=== PATIENT | male | born 1960 | race Caucasian/White ===

== ENCOUNTER 2021-07-14 02:46 | Emergency (ER) | payer MEDICAID ==
[~2021-07-14] VITALS: Ht 182.9 cm; Wt 104.3 kg
[2021-07-14 02:46] VITALS: BP_SYST 176
[2021-07-14] MEDS ORDERED: HYDROcodone/ACETAMIN 5-325 MG TAB (NORCO/ VICODIN) PO ONE (03:15)
[2021-07-14] MEDS ORDERED: LORazepam 1 MG TABLET PO ONE (03:15)
[2021-07-14] MEDS ORDERED: cephALEXin 500 MG CAPSULE PO ONE (03:15)
[2021-07-14] MEDS ORDERED: DIPH-TET-PERTUS Vaccine 0.5 ML VIAL (ADACEL) I.M. ONE (03:15)
[2021-07-14] MEDS ORDERED: LIDOCAINE 1% 10 MG/ML, 20 ML MDV INJ ONE (03:15)
[2021-07-14] MEDS ORDERED: cloNIDine HCL 0.1 MG TABLET ONE (05:42)
[2021-07-14] MEDS ORDERED: cloNIDine HCL 0.1 MG TABLET PO ONE (06:00)
[2021-07-14] MEDS ORDERED: IBUP800T54 PO (06:47)
[2021-07-14 06:52] VITALS: BP_SYST 167
== END 2021-07-14 09:07 | disposition home or self-care (01) ==
LOC: SED 02:46
DX: S01.81XA Laceration without foreign body of other part of head, initial encounter (principal); S09.90XA Unspecified injury of head, initial encounter; Z79.899 Other long term (current) drug therapy; W01.0XXA Fall on same level from slipping, tripping and stumbling without subsequent striking against object, initial encounter; Y93.89 Activity, other specified; Y92.89 Other specified places as the place of occurrence of the external cause; Y99.8 Other external cause status
CPT/HCPCS: 12015; 70450; 70486; 72125; 76376; 90471; 90715; 99285; J2001

== ENCOUNTER 2021-07-19 15:31 | Emergency (ER) | payer MEDICAID ==
[~2021-07-19] VITALS: Ht 182.9 cm; Wt 104.3 kg
[~2021-07-19 15:31] MED LIST: IBUP800T54 PO
[2021-07-19 15:49] VITALS: BP_SYST 151
[2021-07-19 17:04] VITALS: BP_SYST 147
== END 2021-07-19 17:04 | disposition home or self-care (01) ==
LOC: SED 15:31
DX: S01.81XD Laceration without foreign body of other part of head, subsequent encounter (principal); Z48.02 Encounter for removal of sutures; Z79.899 Other long term (current) drug therapy; X58.XXXD Exposure to other specified factors, subsequent encounter
CPT/HCPCS: 99281

== ENCOUNTER 2022-02-24 07:31 | Inpatient (IN) | payer MEDICAID ==
[~2022-02-24] VITALS: Ht 182.9 cm; Wt 99.8 kg
[2022-02-24 07:35] VITALS: BP_SYST 157
[2022-02-24] MEDS ORDERED: MORPHINE 4 MG INJ. 4 MG/ML VIAL IVP ONE (08:30)
[2022-02-24 08:56] LABS: ANION GAP 5 (5-15); CALCIUM 8.2 mg/dL (8.4-11.0); CHLORIDE 97 mmol/L (98-107); CREATININE 1.45 mg/dL (0.55-1.30); GLUCOSE 87 mg/dL (70-99); SODIUM SERUM 131 mmol/L (136-145); UREA NITROGEN, BLOOD 25 mg/dL (8-21)
[2022-02-24 08:57] LABS: INR 1.1 (0.80-1.20); PROTHROMBIN TIME 10.7 SECS (9.5-12.5)
[2022-02-24 09:02] LABS: BASOPHILS # (AUTO) 0.1 K/uL (0.0-0.2); BASOPHILS % (AUTO) 0.9 % (0.0-2.0); EOSINOPHILS # (AUTO) 0.3 K/uL (0.0-0.4); EOSINOPHILS % (AUTO) 3.6 % (0.0-4.0); HEMATOCRIT 44.9 % (36-54); HEMOGLOBIN 15.2 g/dL (14.0-18.0); LYMPHOCYTES # (AUTO) 0.2 K/uL (1.0-5.5); LYMPHOCYTES % (AUTO) 2.8 % (20.5-51.5); MEAN CORPUSCULAR HEMOGLOBIN 31 pg (27-31); MEAN CORPUSCULAR HGB CONC 34 % (32-36); MEAN CORPUSCULAR VOLUME 91 fL (79.0-98.0); MONOCYTES # (AUTO) 0.6 K/uL (0.0-1.0); NEUTROPHILS # (AUTO) 6.8 K/uL (1.8-7.7); NEUTROPHILS % (AUTO) 84.7 % (40.0-70.0); PLATELET COUNT (AUTO) 175 K/uL (130-430); RED BLOOD CELL COUNT(AUTO) 4.95 MIL/uL (4.2-6.2); RED CELL DISTRIBUTION WIDTH 16.6 % (9.0-15.0)
[2022-02-24 09:04] LABS: ALANINE AMINOTRANSFERASE 11 U/L (12-78); ASPARTATE AMINOTRANSFERASE 18 U/L (10-37); TOTAL BILIRUBIN 0.8 mg/dL (0.0-1.0)
[2022-02-24 09:13] LABS: BILIRUBIN,URINE NEGATIVE (NEGATIVE); BLOOD, URINE 1+ (NEGATIVE); CLARITY/URINE CLEAR (CLEAR); COLOR,URINE YELLOW (YELLOW); GLUCOSE,URINE NEGATIVE (NEGATIVE); KETONES,URINE NEGATIVE (NEGATIVE); LEUKOCYTE ESTERASE ,URINE NEGATIVE (NEGATIVE); NITRITE, URINE NEGATIVE (NEGATIVE); PROTEIN URINE 3+ (NEGATIVE); UROBILINOGEN,URINE 0.2 (0.2-1.0)
[2022-02-24 09:16] LABS: GFR AFRICAN AMERICAN 64 mL/min (>90)
[2022-02-24 09:31] LABS: BACTERIA,URINE RARE /HPF (None Seen); MUCUS,URINE 1+ /LPF (None Seen); WBC,URINE 0-3 /HPF (0-3)
[2022-02-24] MEDS ORDERED: iohexoL 350 mgI/mL, 100 ML INFUS..BTL IV ONE (09:42)
[2022-02-24] MEDS ORDERED: NITROGLYCERIN 1 INCH (GM) OINT. TP ONE (12:00)
[2022-02-24] MEDS ORDERED: FUROSEMIDE 100 MG/10 ML VIAL IVP ONE (12:00)
[2022-02-24] MEDS ORDERED: DEXTROSE 50% JECT 50 ML DISP.SYRIN IVP PRN (15:15)
[2022-02-24] MEDS ORDERED: INSULIN REGULAR, HUMAN 100 UNITS/ML, 10 ML VIAL (humuLIN R) SUBCUT PRN (15:15)
[2022-02-24] MEDS ORDERED: NALOXONE HCL 0.4 MG/ML AMP (NARCAN) IVP PRN (15:30)
[2022-02-24] MEDS ORDERED: MORPHINE 2 MG/ML INJ. SYRINGE IVP PRN (15:30)
[2022-02-24] MEDS ORDERED: DIPHENHYDRAMINE INJ 50 MG/ML VIAL IVP PRN (15:30)
[2022-02-24] MEDS ORDERED: LORazepam 2 MG/ML VIAL IVP PRN (15:30)
[2022-02-24] MEDS ORDERED: ACETAMINOPHEN 325 MG TABLET PO PRN (15:30)
[2022-02-24 15:34] LABS: BARBITURATE, URINE NEGATIVE (NEG <=200); BENZODIAZEPINE, URINE NEGATIVE (NEG <=150); CANNABINOID, URINE POSITIVE (NEG <=50); COCAINE, URINE NEGATIVE (NEG <=150); METHAMPHETAMINES SCREEN,URINE POSITIVE (NEG <=500); OPIATE, URINE NEGATIVE (NEG <=100); PHENCYCLIDINE SCREEN,URINE NEGATIVE (NEG <=25); UR TRICYCLIC ANTIDEPRESSANTS NEGATIVE (NEG <=300); URINE AMPHETAMINE POSITIVE (NEG <=500); URINE METHADONE NEGATIVE (NEG <=200); URINE OXYCODONE SCREEN NEGATIVE (NEG <=100); URINE PROPOXYPHENE SCREEN NEGATIVE (NEG <=300)
[2022-02-24] MEDS ORDERED: CARVEDILOL 6.25 MG TABLET (COREG) PO ONE (15:45)
[2022-02-24] MEDS ORDERED: PANTOPRAZOLE SODIUM 40 MG TAB PO ONE (16:00)
[2022-02-24 16:30] VITALS: BP_SYST 145
[2022-02-24] MEDS: MORPHINE 4 MG INJ. 4 MG/ML VIAL IVP PRN (16:35)
[2022-02-24 16:37] VITALS: BP_SYST 145
[2022-02-24] MEDS: FUROSEMIDE 20 MG TABLET PO SCH (17:36)
[2022-02-24 20:00] VITALS: BP_SYST 145
[2022-02-24] MEDS ORDERED: ACETAMINOPHEN 325 MG TABLET ONE (20:50)
[2022-02-24] MEDS: PANTOPRAZOLE SODIUM 40 MG TAB PO SCH (21:46)
[2022-02-24] MEDS: CARVEDILOL 6.25 MG TABLET (COREG) PO SCH (21:52)
[2022-02-25] VITALS: BP_SYST 135
[2022-02-25 01:20] VITALS: BP_SYST 120
[2022-02-25 03:18] LABS: BASOPHILS % (AUTO) 0.8 % (0.0-2.0); EOSINOPHILS # (AUTO) 0.1 K/uL (0.0-0.4); EOSINOPHILS % (AUTO) 1.1 % (0.0-4.0); HEMATOCRIT 44.6 % (36-54); HEMOGLOBIN 15.1 g/dL (14.0-18.0); LYMPHOCYTES # (AUTO) 0.3 K/uL (1.0-5.5); LYMPHOCYTES % (AUTO) 4.9 % (20.5-51.5); MEAN CORPUSCULAR HEMOGLOBIN 31 pg (27-31); MEAN CORPUSCULAR HGB CONC 34 % (32-36); MEAN CORPUSCULAR VOLUME 90 fL (79.0-98.0); MONOCYTES # (AUTO) 0.7 K/uL (0.0-1.0); MONOCYTES % (AUTO) 13.7 % (1.7-9.3); NEUTROPHILS # (AUTO) 4.3 K/uL (1.8-7.7); NEUTROPHILS % (AUTO) 79.5 % (40.0-70.0); PLATELET COUNT (AUTO) 153 K/uL (130-430); RED BLOOD CELL COUNT(AUTO) 4.95 MIL/uL (4.2-6.2); RED CELL DISTRIBUTION WIDTH 16.9 % (9.0-15.0); WHITE BLOOD COUNT (AUTO) 5.4 K/uL (4.8-10.8)
[2022-02-25 03:33] LABS: CREATININE 1.75 mg/dL (0.55-1.30)
[2022-02-25 03:39] LABS: ALBUMIN 2.8 g/dL (3.4-4.8); PHOSPHORUS 4.8 mg/dL (2.7-4.5); TOTAL BILIRUBIN 0.6 mg/dL (0.0-1.0)
[2022-02-25 04:00] VITALS: BP_SYST 117
[2022-02-25 08:49] VITALS: BP_SYST 128
[2022-02-25] MEDS: PANTOPRAZOLE SODIUM 40 MG TAB PO SCH ×2 (10:02→20:26)
[2022-02-25] MEDS: FUROSEMIDE 20 MG TABLET PO SCH ×2 (10:03→18:33)
[2022-02-25] MEDS: CARVEDILOL 6.25 MG TABLET (COREG) PO SCH ×2 (10:03→20:29)
[2022-02-25 11:19] VITALS: BP_SYST 151
[2022-02-25] MEDS: ONDANSETRON HCL 4 MG/2 ML VIAL IVP PRN (13:41)
[2022-02-25 16:32] VITALS: BP_SYST 152
[2022-02-26] VITALS (7 sets, daily range): BP systolic 93–156
[2022-02-26] MEDS: CARVEDILOL 6.25 MG TABLET (COREG) PO SCH ×2 (08:53→20:40)
[2022-02-26] MEDS: POLYETHYLENE GLYCOL 3350, 17 GM/ POWD.PACK PO SCH (08:53)
[2022-02-26] MEDS: FUROSEMIDE 20 MG TABLET PO SCH ×2 (08:54→17:35)
[2022-02-26] MEDS: PANTOPRAZOLE SODIUM 40 MG TAB PO SCH ×2 (08:54→20:39)
[2022-02-26] MEDS: MORPHINE 4 MG INJ. 4 MG/ML VIAL IVP PRN ×2 (09:00→18:34)
[2022-02-26] MEDS: ONDANSETRON HCL 4 MG/2 ML VIAL IVP PRN (12:25)
[2022-02-27 00:21] VITALS: BP_SYST 97
[2022-02-27 06:33] LABS: BASOPHILS % (AUTO) 0.4 % (0.0-2.0); EOSINOPHILS % (AUTO) 0.3 % (0.0-4.0); HEMATOCRIT 43.3 % (36-54); HEMOGLOBIN 14.7 g/dL (14.0-18.0); LYMPHOCYTES # (AUTO) 0.6 K/uL (1.0-5.5); LYMPHOCYTES % (AUTO) 6.6 % (20.5-51.5); MEAN CORPUSCULAR HEMOGLOBIN 31 pg (27-31); MEAN CORPUSCULAR HGB CONC 34 % (32-36); MEAN CORPUSCULAR VOLUME 91 fL (79.0-98.0); MONOCYTES # (AUTO) 1.4 K/uL (0.0-1.0); MONOCYTES % (AUTO) 14.8 % (1.7-9.3); NEUTROPHILS # (AUTO) 7.5 K/uL (1.8-7.7); NEUTROPHILS % (AUTO) 77.9 % (40.0-70.0); PLATELET COUNT (AUTO) 157 K/uL (130-430); RED BLOOD CELL COUNT(AUTO) 4.75 MIL/uL (4.2-6.2); RED CELL DISTRIBUTION WIDTH 16.5 % (9.0-15.0); WHITE BLOOD COUNT (AUTO) 9.6 K/uL (4.8-10.8)
[2022-02-27 07:45] LABS: ALBUMIN 2.7 g/dL (3.4-4.8); CALCIUM 7.8 mg/dL (8.4-11.0); CREATININE 2.04 mg/dL (0.55-1.30); POTASSIUM 4.4 mmol/L (3.5-5.1); TOTAL BILIRUBIN 0.5 mg/dL (0.0-1.0)
[2022-02-27 07:47] VITALS: BP_SYST 92
[2022-02-27] MEDS: POLYETHYLENE GLYCOL 3350, 17 GM/ POWD.PACK PO SCH (09:28)
[2022-02-27] MEDS: PANTOPRAZOLE SODIUM 40 MG TAB PO SCH ×2 (09:28→20:53)
[2022-02-27] MEDS: FUROSEMIDE 20 MG TABLET PO SCH (09:49)
[2022-02-27] MEDS: CARVEDILOL 6.25 MG TABLET (COREG) PO SCH ×2 (09:50→20:53)
[2022-02-27 11:30] VITALS: BP_SYST 107
[2022-02-27] MEDS: MORPHINE 4 MG INJ. 4 MG/ML VIAL IVP PRN (14:42)
[2022-02-27 16:10] VITALS: BP_SYST 105
[2022-02-27 20:51] VITALS: BP_SYST 113
[2022-02-28 00:56] VITALS: BP_SYST 139
[2022-02-28 06:41] LABS: BASOPHILS % (AUTO) 0.4 % (0.0-2.0); EOSINOPHILS # (AUTO) 0.1 K/uL (0.0-0.4); EOSINOPHILS % (AUTO) 1.4 % (0.0-4.0); HEMATOCRIT 44.1 % (36-54); HEMOGLOBIN 14.7 g/dL (14.0-18.0); LYMPHOCYTES # (AUTO) 0.8 K/uL (1.0-5.5); LYMPHOCYTES % (AUTO) 10.8 % (20.5-51.5); MEAN CORPUSCULAR HEMOGLOBIN 30 pg (27-31); MEAN CORPUSCULAR HGB CONC 33 % (32-36); MEAN CORPUSCULAR VOLUME 91 fL (79.0-98.0); MONOCYTES # (AUTO) 1.1 K/uL (0.0-1.0); MONOCYTES % (AUTO) 14.2 % (1.7-9.3); NEUTROPHILS # (AUTO) 5.8 K/uL (1.8-7.7); NEUTROPHILS % (AUTO) 73.2 % (40.0-70.0); PLATELET COUNT (AUTO) 148 K/uL (130-430); RED BLOOD CELL COUNT(AUTO) 4.84 MIL/uL (4.2-6.2); RED CELL DISTRIBUTION WIDTH 16.4 % (9.0-15.0); WHITE BLOOD COUNT (AUTO) 7.9 K/uL (4.8-10.8)
[2022-02-28 07:27] LABS: CREATININE 1.96 mg/dL (0.55-1.30); POTASSIUM 4.1 mmol/L (3.5-5.1)
[2022-02-28 09:04] VITALS: BP_SYST 114
[2022-02-28] MEDS: PANTOPRAZOLE SODIUM 40 MG TAB PO SCH ×2 (09:11→22:13)
[2022-02-28] MEDS: FUROSEMIDE 20 MG TABLET PO SCH (09:12)
[2022-02-28] MEDS: CARVEDILOL 6.25 MG TABLET (COREG) PO SCH ×2 (09:13→22:15)
[2022-02-28] MEDS: POLYETHYLENE GLYCOL 3350, 17 GM/ POWD.PACK PO SCH (09:13)
[2022-02-28 11:53] VITALS: BP_SYST 90
[2022-02-28 16:12] VITALS: BP_SYST 137
[2022-02-28 20:00] VITALS: BP_SYST 152
[2022-02-28] MEDS: MORPHINE 4 MG INJ. 4 MG/ML VIAL IVP PRN (22:17)
[2022-03-01 00:01] VITALS: BP_SYST 140
[2022-03-01 07:01] LABS: BASOPHILS % (AUTO) 0.2 % (0.0-2.0); EOSINOPHILS # (AUTO) 0.1 K/uL (0.0-0.4); EOSINOPHILS % (AUTO) 2.1 % (0.0-4.0); HEMATOCRIT 41.6 % (36-54); HEMOGLOBIN 13.9 g/dL (14.0-18.0); LYMPHOCYTES # (AUTO) 0.9 K/uL (1.0-5.5); LYMPHOCYTES % (AUTO) 11.9 % (20.5-51.5); MEAN CORPUSCULAR HEMOGLOBIN 30 pg (27-31); MEAN CORPUSCULAR HGB CONC 33 % (32-36); MEAN CORPUSCULAR VOLUME 91 fL (79.0-98.0); MONOCYTES # (AUTO) 0.9 K/uL (0.0-1.0); MONOCYTES % (AUTO) 12.7 % (1.7-9.3); NEUTROPHILS # (AUTO) 5.2 K/uL (1.8-7.7); NEUTROPHILS % (AUTO) 73.1 % (40.0-70.0); PLATELET COUNT (AUTO) 137 K/uL (130-430); RED BLOOD CELL COUNT(AUTO) 4.57 MIL/uL (4.2-6.2); RED CELL DISTRIBUTION WIDTH 16.7 % (9.0-15.0); WHITE BLOOD COUNT (AUTO) 7.2 K/uL (4.8-10.8)
[2022-03-01 07:51] LABS: ALBUMIN 2.4 g/dL (3.4-4.8); CREATININE 1.57 mg/dL (0.55-1.30); POTASSIUM 3.9 mmol/L (3.5-5.1); TOTAL BILIRUBIN 0.5 mg/dL (0.0-1.0)
[2022-03-01 07:57] VITALS: BP_SYST 128
[2022-03-01] MEDS: CARVEDILOL 6.25 MG TABLET (COREG) PO SCH (09:42)
[2022-03-01] MEDS: PANTOPRAZOLE SODIUM 40 MG TAB PO SCH (09:43)
[2022-03-01] MEDS: POLYETHYLENE GLYCOL 3350, 17 GM/ POWD.PACK PO SCH (09:43)
[2022-03-01] MEDS: FUROSEMIDE 20 MG TABLET PO SCH (09:45)
[2022-03-01 11:24] VITALS: BP_SYST 128
[2022-03-01 11:29] VITALS: BP_SYST 147
[2022-03-01 15:28] VITALS: BP_SYST 133
[2022-03-01] MEDS ORDERED: COR6.25 PO (16:21)
[2022-03-01] MEDS ORDERED: FURO-150 PO (16:21)
[2022-03-01] MEDS ORDERED: PRO40 PO (16:21)
[2022-03-01 16:26] VITALS: BP_SYST 130
== END 2022-03-01 16:55 | disposition home health service (06) | DRG 194 ==
LOC: SED 07:31 → STU 13:29 → SMU 03-01 10:52
PROVIDERS: ADMIT Internal Medicine; ATTEND Internal Medicine
DX: I13.0 Hypertensive heart and chronic kidney disease with heart failure and stage 1 through stage 4 chronic kidney disease, or unspecified chronic kidney disease (principal); N17.0 Acute kidney failure with tubular necrosis; E44.0 Moderate protein-calorie malnutrition; I50.43 Acute on chronic combined systolic (congestive) and diastolic (congestive) heart failure; E11.22 Type 2 diabetes mellitus with diabetic chronic kidney disease; E66.01 Morbid (severe) obesity due to excess calories; I42.0 Dilated cardiomyopathy; G89.29 Other chronic pain; J44.9 Chronic obstructive pulmonary disease, unspecified; Z20.822 Contact with and (suspected) exposure to COVID-19; F15.10 Other stimulant abuse, uncomplicated; E11.51 Type 2 diabetes mellitus with diabetic peripheral angiopathy without gangrene; F12.10 Cannabis abuse, uncomplicated; M54.9 Dorsalgia, unspecified; N18.32 Chronic kidney disease, stage 3b; I42.9 Cardiomyopathy, unspecified; Z87.891 Personal history of nicotine dependence; Z68.29 Body mass index [BMI] 29.0-29.9, adult
CPT/HCPCS: 36415; 71045; 72170-TC; 72191; 73502; 74175; 76376; 80048; 80053; 80061; 80307; 81000; 82962; 83605; 83690; 83880; 84100; 84302; 84484; 85025; 85610-TC; 87040; 87086; 93005; 93306; 96374; 96375; 99291; G0378; J1815; J1940; J2270; J2405; Q9967

== ENCOUNTER 2022-04-08 14:29 | Emergency (ER) | payer MEDICAID ==
[~2022-04-08] VITALS: Ht 182.9 cm; Wt 99.8 kg
[~2022-04-08 14:29] MED LIST changes: +COR6.25 PO; +FURO-150 PO; -IBUP800T54 PO; +PRO40 PO
[2022-04-08 14:49] VITALS: BP_SYST 154
--- NOTE | 2022-04-08 14:51 | NUR ---
PT CAME IN STATES HE IS LIVING IN HIS CAR CURRENTLY AND HAS HAD WORSENING PAIN IN BOTH HAND WITH NUMBNESS. PT ALSO C/O STIFFNESS TO BOTH ARMS AND SHOULDERS WITH LIMITED ROM. PT IS AMBULATORY, AAOX4, VSS
--- NOTE | 2022-04-08 14:51 | NUR ---
PT TRIAGED AND PLACED IN ED WAITING ROOM, MADE AWARE OF MSE NEEDS
[2022-04-08 15:56] LABS: BASOPHILS # (AUTO) 0.1 K/uL (0.0-0.2); BASOPHILS % (AUTO) 0.8 % (0.0-2.0); EOSINOPHILS # (AUTO) 0.5 K/uL (0.0-0.4); EOSINOPHILS % (AUTO) 5.7 % (0.0-4.0); HEMATOCRIT 44.4 % (36-54); HEMOGLOBIN 15.1 g/dL (14.0-18.0); LYMPHOCYTES # (AUTO) 1.7 K/uL (1.0-5.5); LYMPHOCYTES % (AUTO) 18.5 % (20.5-51.5); MEAN CORPUSCULAR HEMOGLOBIN 32 pg (27-31); MEAN CORPUSCULAR HGB CONC 34 % (32-36); MEAN CORPUSCULAR VOLUME 93 fL (79.0-98.0); MONOCYTES # (AUTO) 0.9 K/uL (0.0-1.0); MONOCYTES % (AUTO) 9.9 % (1.7-9.3); NEUTROPHILS # (AUTO) 5.8 K/uL (1.8-7.7); NEUTROPHILS % (AUTO) 65.1 % (40.0-70.0); PLATELET COUNT (AUTO) 210 K/uL (130-430); RED BLOOD CELL COUNT(AUTO) 4.78 MIL/uL (4.2-6.2); RED CELL DISTRIBUTION WIDTH 15.2 % (9.0-15.0)
[2022-04-08 16:04] LABS: ANION GAP 7 (5-15); CALCIUM 8.9 mg/dL (8.4-11.0); CHLORIDE 102 mmol/L (98-107); CREATININE 1.63 mg/dL (0.55-1.30); GLUCOSE 126 mg/dL (70-99); POTASSIUM 3.8 mmol/L (3.5-5.1); SODIUM SERUM 135 mmol/L (136-145); UREA NITROGEN, BLOOD 28 mg/dL (8-21)
[2022-04-08 16:07] LABS: GFR AFRICAN AMERICAN 56 mL/min (>90)
[2022-04-08 16:18] LABS: ALANINE AMINOTRANSFERASE 15 U/L (12-78); ASPARTATE AMINOTRANSFERASE 12 U/L (10-37); TOTAL BILIRUBIN 0.5 mg/dL (0.0-1.0)
[2022-04-08 16:20] LABS: C-REACTIVE PROTEIN QUANT < 0.2 mg/dL (0-0.5)
[2022-04-08 16:31] LABS: ERYTHROCYTE SEDIMENTATION RATE 13 MM/HR (0-15)
[2022-04-08 19:33] VITALS: BP_SYST 161
--- NOTE | 2022-04-08 19:35 | NUR ---
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 PHONE CALL PER IRIS, DIRECTOR OF DIGITAL TECHNOLOGY.ELEVATED BP MADE AWARE TO DR. STRICKLAND. WILL FOLLOW ON THIS SUNDAY WITH PMD. PT RAN OUT OF UNK HTN PILL 2-4 DAYS AGO.VSS NEW SHIRT PROVIDED BY [facility] SOCKS PUT ON PT'S BARE FEET. TO LOBBY AMB WITH ALL PAPERWORK IN HAND.
== END 2022-04-08 19:33 | disposition home or self-care (01) ==
LOC: SED 14:29
DX: M54.12 Radiculopathy, cervical region (principal); J44.9 Chronic obstructive pulmonary disease, unspecified; E11.22 Type 2 diabetes mellitus with diabetic chronic kidney disease; N18.9 Chronic kidney disease, unspecified; Z79.899 Other long term (current) drug therapy
CPT/HCPCS: 36415; 80053; 85025; 85651-TC; 86140; 99283

== ENCOUNTER 2022-05-28 22:01 | Emergency (ER) | payer MEDICAID ==
[~2022-05-28] VITALS: Ht 175.3 cm; Wt 99.8 kg
[2022-05-28 22:30] VITALS: BP_SYST 134
[2022-05-28] MEDS ORDERED: KETOROLAC TROMETHAMINE 60 MG/2 ML VIAL IM ONE (23:00)
[2022-05-28] MEDS ORDERED: NAPR-690 PO (23:02)
[2022-05-28 23:35] VITALS: BP_SYST 137
== END 2022-05-28 23:35 | disposition home or self-care (01) ==
LOC: SED 22:01
DX: M54.32 Sciatica, left side (principal); M79.605 Pain in left leg; J44.9 Chronic obstructive pulmonary disease, unspecified; E11.9 Type 2 diabetes mellitus without complications; I11.0 Hypertensive heart disease with heart failure; I50.9 Heart failure, unspecified; Z79.899 Other long term (current) drug therapy
CPT/HCPCS: 99283; 96372; J1885

== ENCOUNTER 2024-07-07 09:41 | Emergency (ER) | payer MEDICAID ==
[~2024-07-07] VITALS: Ht 177.8 cm; Wt 95.3 kg
[~2024-07-07 09:41] MED LIST changes: +NAPR-690 PO
[2024-07-07 09:58] VITALS: BP_SYST 152; PULSE 96; RESP 18; TEMP 97.4; O2SAT 96
[2024-07-07] MEDS: KETOROLAC TROMETHAMINE 30 MG VIAL IM ONE (10:53)
[2024-07-07 11:20] VITALS: BP_SYST 152; PULSE 96; RESP 18; TEMP 97.4; O2SAT 96
== END 2024-07-07 11:20 | disposition home or self-care (01) ==
LOC: SED 09:41
DX: M25.512 Pain in left shoulder (principal); R20.0 Anesthesia of skin; R20.2 Paresthesia of skin; R53.1 Weakness; I11.0 Hypertensive heart disease with heart failure; I50.9 Heart failure, unspecified; E11.9 Type 2 diabetes mellitus without complications; J44.9 Chronic obstructive pulmonary disease, unspecified; E03.9 Hypothyroidism, unspecified; Z79.899 Other long term (current) drug therapy
CPT/HCPCS: 99283; 73030; 96372; J1885